=== PATIENT | male | born 1960 | race Caucasian/White ===

== ENCOUNTER 2020-02-07 08:00 | Inpatient (IN) | payer OTHER ==
[2020-01-29 11:34] LABS: EOSINOPHILS # (AUTO) 0.1 X10'3 (0-0.9); MONOCYTES # (AUTO) 0.5 X10'3 (0-0.9); NEUTROPHILS # (AUTO) 2.8 X10'3 (1.8-7.7); RED BLOOD COUNT 4.94 X10'6 (4.70-6.10)
[2020-01-29 11:36] LABS: BASOPHILS % (AUTO) 0.8 % (0-1); LYMPHOCYTES # (AUTO) 2.3 X10'3 (1.1-4.8); LYMPHOCYTES % (AUTO) 39.8 % (21-51); MEAN CORPUSCULAR HEMOGLOBIN 32.1 PG (27.0-31.0); MEAN CORPUSCULAR HGB CONC 34.7 g/dL (33.0-36.5); MEAN CORPUSCULAR VOLUME 92.4 FL (78-98); MEAN PLATELET VOLUME 8.1 FL (7.4-10.4); MONOCYTES % (AUTO) 8.6 % (2-12); NEUTROPHILS % (AUTO) 48.8 % (42-75); PRE OP HEMATOCRIT 45.7 % (42.0-52.0); PRE OP HEMOGLOBIN 15.8 g/dL (14.0-17.9); PRE OP PLATELET COUNT 244 X10'3 (140-440); RED CELL DISTRIBUTION WIDTH 12.7 % (11.5-14.5)
[2020-01-29 11:46] LABS: PRE OP PROTIME 10.4 SECONDS (9.0-12.0)
[2020-01-29 11:48] LABS: ALBUMIN 4.5 G/DL (3.4-5.0); ALBUMIN/GLOBULIN RATIO 1.4 (1.1-1.5); ALKALINE PHOSPHATASE 65 IU/L (46-116); BLOOD UREA NITROGEN 7 MG/DL (7-18); BUN/CREATININE RATIO 9.2 (5.4-32.0); CALCIUM 9.4 MG/DL (8.5-10.1); CHLORIDE 102 MMOL/L (99-107); CREATININE 0.76 MG/DL (0.60-1.10); PRE OP ALT 43 U/L (30-65); PRE OP ANION GAP 6 (8-16); PRE OP AST 25 U/L (10-37); PRE OP BILIRUB, TOTAL 0.6 MG/DL (0.0-1.0); PRE OP GLUCOSE 99 MG/DL (70-104); PRE OP POTASSIUM 3.5 MMOL/L (3.4-5.1); PRE OP SODIUM 137 MMOL/L (135-145); TOTAL CARBON DIOXIDE 28.6 MMOL/L (24-32); TOTAL PROTEIN 7.7 G/DL (6.4-8.2); eGFR > 90 ML/MIN
[2020-01-29 12:22] LABS: PLATELET ESTIMATE NORMAL; TOTAL CELLS COUNTED 100
[2020-02-07] VITALS (16 sets, daily range): BP systolic 131–159; BP diastolic 54–96
[~2020-02-07] VITALS: Ht 182.9 cm; Wt 103.4 kg
[~2020-02-07 08:00] MED LIST: ALLO100T PO; AMLO10TA PO; ASPI81TA52 PO; DOCUMENT DATE & TIME OF BETA-BLOCKER PO ONE; HYDR-3965 PO; LOSA1TAB39 PO; METO25TA6 PO; cefazolin/dext.iso 2gm/50ml 50 ML IV ONE; famotidine 20mg tablet PO ONE; ringers solution, lacted 1,000 ML IV SCH; vancomycin 1,500 MG in NS 500ml IV soln IV ONE
[2020-02-07] MEDS ORDERED: epiNEPHrine 1 mg/ml inj ONE (09:56)
[2020-02-07] MEDS ORDERED: ketorolac trometh. 30mg/ml inj. ONE (09:56)
[2020-02-07] MEDS ORDERED: ceFAZolin 1000mg inj ONE ×2 (09:56→10:33)
[2020-02-07] MEDS ORDERED: morphine 10mg/ml inj. ONE (09:56)
[2020-02-07] MEDS ORDERED: Thrombin (Bovine) 5,000 unit vial TP ONE (09:57)
[2020-02-07] MEDS ORDERED: ROPIVAcaine 0.5% (5mg/ml) 30ml vial ONE ×2 (09:57→13:08)
[2020-02-07] MEDS ORDERED: tetracaine 1% (10mg/ml) pres. free inj. ONE (10:44)
[2020-02-07] MEDS ORDERED: tranexamic acid inj. 1,000 MG in normal saline 100ml IV soln 100 ML IV ONE (10:45)
[2020-02-07] MEDS ORDERED: MIDAZolam 5mg/5ml vial ONE (10:49)
[2020-02-07] MEDS ORDERED: propofol inj 20 ML IV ONE ×5 (11:10→12:49)
[2020-02-07] MEDS ORDERED: ringers solution, lacted 1,000 ML IV SCH (11:16)
[2020-02-07] MEDS ORDERED: hydrALAZINE 20mg/ml inj. IV PRN (11:20)
[2020-02-07] MEDS ORDERED: morphine 2 MG/ML inj. syringe IV PRN (11:20)
[2020-02-07] MEDS ORDERED: ROPIVAcaine 0.2% (10 MG/5 ML) BOLUS INJECTION ADDCANAL PRN (11:20)
[2020-02-07] MEDS ORDERED: labetalol 20mg/4ml (5mg/ml) syringe IV PRN (11:20)
[2020-02-07] MEDS ORDERED: proCHLORperazine 10 MG/2 ml inj IV PRN (11:20)
[2020-02-07] MEDS ORDERED: ondansetron/PF 4mg/2ml inj IV PRN ×2 (11:20→13:15)
[2020-02-07] MEDS ORDERED: acetaminophen 1,000mg/100ml IV 100 ML IV PRN (11:20)
[2020-02-07] MEDS ORDERED: morphine 4 MG/ML inj SYRINge IV PRN (11:20)
[2020-02-07] MEDS ORDERED: meperidine/PF 25mg/ml syringe IV PRN ×3 (11:20)
[2020-02-07] MEDS ORDERED: magnesium hydroxide 30ml (MOM) UD suspension PO PRN (13:15)
[2020-02-07] MEDS ORDERED: diphenhydrAMINE 25mg capsule PO PRN ×2 (13:15)
[2020-02-07] MEDS ORDERED: HYDROmorphone inj. 0.5 MG/0.5 ML DISP.SYRIN IV PRN (13:15)
[2020-02-07] MEDS ORDERED: bisacodyl 10mg suppository rectal RC PRN (13:15)
[2020-02-07] MEDS ORDERED: HYDROmorphone 1 mg/ml syringe IV PRN (13:15)
[2020-02-07] MEDS ORDERED: acetaminophen 325mg tablet PO PRN (13:15)
--- NOTE | 2020-02-07 13:45 | NUR ---
Received from OR via [facility]TH[facility] BED , accompanied by Anesthesiologist IDA and report given by Anesthesiolgist. PATIENT WITH KNEE WRAP, DIMITRI, POWDER PACKS. NO DRAINAGE PRESENT TO DRESSING. PATIENT WITH +DP RIGHT FOOT. NERVE BLOCK SITE PRESENT AND WAS CONNECTED TO ON Q PUMP UPON ARRIVAL. PATIENT IN 9-10 PAIN. ANESTHESIA MADE AWARE. 18G PIV IN LEFT FOREARM. Addendum: 02/07/20 at 1417 by Raheem Mendoza RN, RN Amended: Links added.
[2020-02-07] MEDS: ROPIVAcaine 0.2%/PF PUMP/bolus 550 ML ADDCANAL SCH (14:08)
[2020-02-07] MEDS ORDERED: acetaminophen 1,000mg/100ml IV 100 ML IV ONE (14:10)
--- NOTE | 2020-02-07 14:55 | NUR ---
PATIENT A&OX4, TOLERABLE PAIN, V/S WNL, NEUROVASCULAR CHECKS INTACT, PIV INTACT, DRESSING TO RIGHT KNEE CDI W/ COLD POWDER PACK AND W/ SCD ON. F/C DRAINING CLEAR YELLOW URINE. . PATIENT TAKEN TO WITH ALL BELONGINGS AND HOOKED UP TO MONITORS IN ROOM AND REPORT GIVEN TO CHERELLE FRANCO WHO HAS TAKEN OVER PATIENT CARE. Addendum: 02/07/20 at 1510 by Raheem Cespedes - SABINA MUHAMMAD Amended: Links added.
[2020-02-07] MEDS: oxyCODONE IR 5mg (immed. release) tablet PO PRN ×2 (16:37→20:43)
[2020-02-07] MEDS: acetaminophen 325mg tablet PO SCH ×2 (16:38→20:00)
[2020-02-07] MEDS ORDERED: tranexamic acid 1gm/0.7% sal. 100 ML IV ONE (17:00)
[2020-02-07] MEDS: ceFAZolin 1GM/D5W- ADD-VANTAGE 50 ML IV SCH ×2 (17:43→23:26)
--- NOTE | 2020-02-07 18:05 | NUR ---
Patient in room ORTHO 4010. I have received report from SABINA Tejada and had the opportunity to ask questions and assume patient care.
--- NOTE | 2020-02-07 18:32 | NUR ---
REPORT TO REGGIE MUHAMMAD
[2020-02-07] MEDS ORDERED: HYDROcodone/acetaminophen 5mg/325mg tablet PO PRN (20:00)
[2020-02-07] MEDS ORDERED: vancomycin/NS 1 GM ADD-VANTAGE 250 ML IV SCH (20:00)
[2020-02-07] MEDS: potassium cl 20mEq in 1/2 NS 1,000 ML IV SCH (20:42)
[2020-02-07] MEDS: gabapentin 300mg capsule PO SCH (20:44)
[2020-02-07] MEDS: metoprolol tartrate 25mg tablet PO SCH (20:44)
[2020-02-07] MEDS ORDERED: sennosides 8.6mg tablet PO SCH (21:00)
[2020-02-07] MEDS ORDERED: aspirin 325mg tablet, delayed-release (Ecotrin) PO SCH (21:00)
[2020-02-08] MEDS: acetaminophen 325mg tablet PO SCH ×3 (01:01→13:22)
[2020-02-08] MEDS: oxyCODONE IR 5mg (immed. release) tablet PO PRN ×4 (01:02→10:19)
[2020-02-08 02:00] VITALS: BP 151/95
[2020-02-08 06:10] VITALS: BP 148/89
--- NOTE | 2020-02-08 06:29 | NUR ---
Problems reprioritized. Patient report given, questions answered & plan of care reviewed with SABINA Reyes.
--- NOTE | 2020-02-08 06:36 | NUR ---
Patient in room ORTHO 4010. I have received report from Tracy MUHAMMAD and had the opportunity to ask questions and assume patient care.
[2020-02-08] MEDS: gabapentin 300mg capsule PO SCH ×2 (07:18→13:21)
[2020-02-08] MEDS: metoprolol tartrate 25mg tablet PO SCH (07:18)
[2020-02-08] MEDS: potassium cl 20mEq in 1/2 NS 1,000 ML IV SCH (07:21)
[2020-02-08 07:59] LABS: BASOPHILS % (AUTO) 0.3 % (0-1); EOSINOPHILS # (AUTO) 0.1 X10'3 (0-0.9); EOSINOPHILS % (AUTO) 0.6 % (0-6); HEMATOCRIT 35.6 % (42.0-52.0); HEMOGLOBIN 12.5 g/dl (14.0-17.9); LYMPHOCYTES # (AUTO) 1.2 X10'3 (1.1-4.8); LYMPHOCYTES % (AUTO) 11.4 % (21-51); MEAN CORPUSCULAR HEMOGLOBIN 32.7 PG (27.0-31.0); MEAN CORPUSCULAR HGB CONC 35.3 g/dL (33.0-36.5); MEAN CORPUSCULAR VOLUME 92.6 FL (78-98); MEAN PLATELET VOLUME 8.2 FL (7.4-10.4); MONOCYTES # (AUTO) 1.1 X10'3 (0-0.9); MONOCYTES % (AUTO) 10.2 % (2-12); NEUTROPHILS # (AUTO) 8.2 X10'3 (1.8-7.7); NEUTROPHILS % (AUTO) 77.5 % (42-75); PLATELET COUNT 194 X10'3 (140-440); RED BLOOD COUNT 3.84 X10'6 (4.70-6.10); RED CELL DISTRIBUTION WIDTH 12.7 % (11.5-14.5); WHITE BLOOD COUNT 10.6 X10'3 (4.5-11.0)
[2020-02-08] MEDS ORDERED: enoxaparin 40mg/0.4ml syringe SQ SCH (08:00)
[2020-02-08] MEDS ORDERED: losartan 50mg tablet PO SCH (08:00)
[2020-02-08] MEDS ORDERED: allopurinol 100mg tablet PO SCH (08:00)
[2020-02-08] MEDS ORDERED: HYDROchlorothiazide 25mg tablet PO SCH (08:00)
[2020-02-08] MEDS ORDERED: amLODIPine 5mg tablet PO SCH (08:00)
[2020-02-08] MEDS ORDERED: non-formulary drug (Losartan/Hydrochlorothiazide (Losartan-Hctz 100-25 Mg Tab) 1 TAB) PO SCH (08:00)
[2020-02-08 08:17] LABS: ANION GAP 9 (8-16); CHLORIDE 100 MMOL/L (99-107); POTASSIUM 3.8 MMOL/L (3.5-5.1); SODIUM 136 MMOL/L (135-145); TOTAL CARBON DIOXIDE 26.9 MMOL/L (24-32)
[2020-02-08] MEDS ORDERED: ASPI-845 PO (09:09)
[2020-02-08] MEDS ORDERED: ONQPUMP ADDCANAL (09:09)
[2020-02-08 10:00] VITALS: BP 109/73
--- NOTE | 2020-02-08 11:27 | NUR ---
Joint replacement consult: Pt s/p T TKA PO 100% avg regular diet. Given current standing scale wt, good PO hx, and additional protein needs for wound healing double eggs at breakfast as well as double meats BIDLD added. Dietary notified. No nutrition concerns at this time. Addendum: 02/08/20 at [address] Amended: Links added.
[2020-02-08] MEDS ORDERED: HYDROcodone/acetaminophen 5mg/325mg tablet PO PRN ×2 (14:30)
[2020-02-08] MEDS: ROPIVAcaine 0.2%/PF PUMP/bolus 550 ML ADDCANAL SCH (15:25)
--- NOTE | 2020-02-08 16:30 | NUR ---
Patient discharged with crutches and walker with belongings to home. He was taught all discharge instructions and taken out in a wheel chair.
[2020-02-08] MEDS ORDERED: celeCOXIB 100mg capsule PO SCH (20:00)
[2020-02-09] MEDS ORDERED: acetaminophen 325mg tablet PO PRN (13:15)
== END 2020-02-08 16:20 | disposition home or self-care (01) | DRG 470 ==
LOC: PAS IN 08:00 → UNDOADMIN 08:00 → EDSTATUS 11:00 → PAS IN 13:11 → ORTHO 4S 15:02 → PAS IN 15:02
PROVIDERS: ADMIT Orthopaedic Surgery; ATTEND Orthopaedic Surgery
PROC: 3E0T3BZ Introduction of Anesthetic Agent into Peripheral Nerves and Plexi, Percutaneous Approach (ICD-10-PCS; 2020-02-07)
PROC: 8E0Y0CZ Robotic Assisted Procedure of Lower Extremity, Open Approach (ICD-10-PCS; 2020-02-07)
PROC: 0SRC069 Replacement of Right Knee Joint with Oxidized Zirconium on Polyethylene Synthetic Substitute, Cemented, Open Approach (ICD-10-PCS; principal; 2020-02-07 10:41)
DX: M17.11 Unilateral primary osteoarthritis, right knee (principal); D62 Acute posthemorrhagic anemia; I10 Essential (primary) hypertension; M65.88 Other synovitis and tenosynovitis, other site; M10.9 Gout, unspecified; E66.9 Obesity, unspecified; Z68.30 Body mass index [BMI] 30.0-30.9, adult; Z79.899 Other long term (current) drug therapy; Z79.82 Long term (current) use of aspirin
CPT/HCPCS: Z7506; Z7508; 36415; 80051; 80053; 82948; 85025; 85610; 85730; 87081; 93005; 97110; 97116; 97161; 97530; A4215; A6454; A7000; C1713; C1758; C1776; C9250; G0378; J0171; J0690; J1170; J1885; J2175; J2250; J2270; J2704; J2795; J3370; J3480; J7040; J7120

== ENCOUNTER 2024-05-16 15:06 | Emergency (ER) | payer OTHER ==
[~2024-05-16] VITALS: Ht 182.9 cm; Wt 102.5 kg
[~2024-05-16 15:06] MED LIST changes: +ASPI-845 PO; -ASPI81TA52 PO; -DOCUMENT DATE & TIME OF BETA-BLOCKER PO ONE; +LOP25T PO; -METO25TA6 PO; +ONQPUMP ADDCANAL; -cefazolin/dext.iso 2gm/50ml 50 ML IV ONE; -famotidine 20mg tablet PO ONE; -ringers solution, lacted 1,000 ML IV SCH; -vancomycin 1,500 MG in NS 500ml IV soln IV ONE
[2024-05-16 15:26] VITALS: BP 161/102; PULSE 67; RESP 18; TEMP 97; O2SAT 95
== END 2024-05-16 16:30 | disposition home or self-care (01) ==
LOC: ER 15:06
DX: T14.90XA Injury, unspecified, initial encounter (principal); F07.81 Postconcussional syndrome; Z79.899 Other long term (current) drug therapy; Z79.82 Long term (current) use of aspirin; Z79.1 Long term (current) use of non-steroidal anti-inflammatories (NSAID); X58.XXXA Exposure to other specified factors, initial encounter; Y93.89 Activity, other specified; Y92.89 Other specified places as the place of occurrence of the external cause; Y99.8 Other external cause status
CPT/HCPCS: 99281